=== PATIENT | female | born 1995 | race Caucasian/White ===

== ENCOUNTER 2021-02-03 12:42 | Emergency (ER) | payer OTHER ==
[~2021-02-03 12:42] MED LIST: OMEPRAZOLE20 M1 PO; ONDANSETRON ODT4 MG PO; PROVERA 10 MG T10 MG GT; ZITHROMAX250 MG PO
[2021-02-03 13:14] LABS: HEMOGLOBIN 13.2 gm/dl (12.3-15.3); RED BLOOD COUNT 4.57 M/UL (4.00-5.10); WHITE BLOOD COUNT 9.2 K/UL (4.5-11.0)
[2021-02-03 13:43] LABS: BUN/CREATININE RATIO 12 (0-10)
== END 2021-02-03 15:30 | disposition home or self-care (01) ==
LOC: ER1 12:42
PROVIDERS: Physician Assistant
DX: O21.9 Vomiting of pregnancy, unspecified (principal); O99.891 Other specified diseases and conditions complicating pregnancy; R05 Cough; R79.89 Other specified abnormal findings of blood chemistry
CPT/HCPCS: 80053; 81001; 85025; 96374; 99284; J2550; J7030